=== PATIENT | female | born 1970 | race Caucasian/White ===

== ENCOUNTER 2017-01-08 07:18 | Outpatient (CLI) | payer OTHER ==
--- NOTE | 2017-01-08 09:27 | CT Report ---
CT OF CERVICAL SPINE WITHOUT CONTRAST: 01/08/2017 CLINICAL INDICATION: Neck pain after a horse accident. TECHNIQUE: Axial CT images of the cervical spine were obtained without contrast, following which sagi ttal and coronal reconstructions were performed. No previous CT is available for comparison. FINDINGS: The cervical vertebral bodies demonstrate normal height and alignment. 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 The other disk spaces are unremarkable. There is no evidence of fracture or subl uxation. The prevertebral soft tissues are unremarkable. 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 NO EVIDENCE OF FRACTURE. In accordance with CT protocol optimization, one or more of the following dose reduction techniques w ere utilized for this exam: automated exposure control, adjustment of mA and/or KV based on patient size, or use of iterative reconstructive technique. JOB #: [id number] EXT JOB #:[id number]
== END 2017-01-08 07:19 | disposition home or self-care (01) ==
LOC: DI 07:18
PROVIDERS: ATTEND Internal Medicine
DX: M54.2 Cervicalgia (principal); Q76.49 Other congenital malformations of spine, not associated with scoliosis
CPT/HCPCS: 72125

== ENCOUNTER 2018-01-17 08:44 | Outpatient (CLI) | payer OTHER ==
[2018-01-17 08:57] LABS: BASOPHILS # (AUTO) 0.1 10^3/uL (0.0-0.1); EOSINOPHILS # (AUTO) 0.2 10^3/uL (0.0-0.7); EOSINOPHILS % (AUTO) 5.3 %; HGB - HEMOGLOBIN 12.2 g/dL (12.0-16.0); LYMPHOCYTES # (AUTO) 1.3 10^3/uL (1.5-3.5); LYMPHOCYTES % (AUTO) 35.2 %; MEAN CORPUSCULAR HEMOGLOBIN 30.8 pg (27.0-31.0); MEAN CORPUSCULAR HGB CONC 33.8 g/dL (32.0-36.0); MEAN CORPUSCULAR VOLUME 91.2 fL (81.0-99.0); MONOCYTES # (AUTO) 0.3 10^3/uL (0.0-1.0); MONOCYTES % (AUTO) 8.8 %; NEUTROPHILS # (AUTO) 1.7 10^3/uL (1.5-6.6); NEUTROPHILS % (AUTO) 47.7 %; PLT - PLATELET COUNT 252 10^3/uL (130-450); RED BLOOD COUNT 3.96 10^6/uL (4.20-5.40); RED CELL DISTRIBUTION WIDTH 12.4 % (12.0-15.0); WHITE BLOOD COUNT 3.7 x10^3/uL (4.8-10.8)
[2018-01-17 10:00] LABS: ALBUMIN/GLOBULIN RATIO 1.4 (1.0-2.2); ALKALINE PHOSPHATASE 37 IU/L (42-121); ALT ALANINE AMINOTRANSFERASE 51 IU/L (10-60); AST ASPARTATE AMINOTRANSFERASE 33 IU/L (10-42); BILIRUBIN,TOTAL 0.7 mg/dL (0.2-1.0); BUN - BLOOD UREA NITROGEN 14 mg/dL (6-20); CALCIUM 9.1 mg/dL (8.5-10.3); CARBON DIOXIDE - CO2 27 mmol/L (21-32); CHLORIDE 103 mmol/L (101-111); CHOL/HDL RATIO 2.9 (<4.4); CHOLESTEROL 237 mg/dL; CREATININE 0.9 mg/dL (0.4-1.0); GFR - MDRD 67 (>89); GLUCOSE 99 mg/dL (70-100); HDL CHOLESTEROL 82 mg/dL; LDL CHOLESTEROL,CALCULATED 141 mg/dL; LDL/HDL RATIO 1.7 (<4.4); SODIUM 139 mmol/L (135-145); TOTAL PROTEIN 6.9 g/dL (6.7-8.2); VLDL CHOLESTEROL 14 mg/dL
[2018-01-17 10:12] LABS: THYROID STIMULATING HORMONE 2.68 uIU/mL (0.34-5.60)
[2018-01-17 10:41] LABS: FOLLICLE STIMULATING HORMONE 46.2 mIU/mL
== END 2018-01-17 08:45 | disposition home or self-care (01) ==
LOC: LAB 08:44
PROVIDERS: ATTEND Internal Medicine
DX: Z00.00 Encounter for general adult medical examination without abnormal findings (principal); K58.9 Irritable bowel syndrome, unspecified; K21.9 Gastro-esophageal reflux disease without esophagitis; R42 Dizziness and giddiness; R20.0 Anesthesia of skin; G35 Multiple sclerosis; J30.2 Other seasonal allergic rhinitis; Z79.899 Other long term (current) drug therapy; Z13.6 Encounter for screening for cardiovascular disorders
CPT/HCPCS: 36415; 80053; 80061; 82607; 83001; 83721; 84443; 85025

== ENCOUNTER 2018-02-14 14:31 | Outpatient (CLI) | payer OTHER ==
[2018-02-14 15:13] LABS: MEAN RETIC VALUE 111.9; RED BLOOD COUNT 4.11 10^6/uL (4.20-5.40)
[2018-02-14 15:50] LABS: FERRITIN 30.6 ng/mL (11.0-306.8)
[2018-02-14 15:55] LABS: FOLATE 8.03 ng/mL (5.90 - >24.8)
[2018-02-14 15:58] LABS: % IRON SATURATION 13 % (20-50); IRON 54 ug/dL (28-170); TOTAL IRON BINDING CAPACITY 402 ug/dL (250-450); TRANSFERRIN 287 mg/dL (192-382)
== END 2018-02-14 14:32 | disposition home or self-care (01) ==
LOC: LAB 14:31
PROVIDERS: ATTEND Internal Medicine
DX: D64.9 Anemia, unspecified (principal); R53.83 Other fatigue
CPT/HCPCS: 36415; 82728; 82746; 83540; 84466; 85044

== ENCOUNTER 2018-02-14 15:16 | Outpatient (CLI) | payer OTHER ==
--- NOTE | 2018-02-14 16:30 | XRAY Report ---
Reason: RIGHT HIP JOINT PAIN Procedure Date: 02/14/2018 Accession Number: [id number] / [id number] Procedure: XR - Femur 2V RT CPT Code: FULL RESULT: EXAM: RIGHT FEMUR RADIOGRAPHY EXAM DATE: 02/14/2018 03:57 PM. CLINICAL HISTORY: Right hip joint pain. COMPARISON: None. TECHNIQUE: 2 views. FINDINGS: Bones: Normal. No fracture or bone lesion. Joints: The visualized hip and knee joints are normal. No effusions. Soft Tissues: Normal. No soft tissue swelling. IMPRESSION: Normal femur radiography. RADIA
--- NOTE | 2018-02-14 16:30 | XRAY Report ---
Reason: PAIN OF RIGHT HIP JOINT Procedure Date: 02/14/2018 Accession Number: [id number] / [id number] Procedure: XR - Hip w/Pelvis 2-3V RT CPT Code: FULL RESULT: EXAM: RIGHT HIP AND PELVIS RADIOGRAPHY EXAM DATE: 02/14/2018 03:57 PM. HISTORY: Pain of right hip joint. COMPARISONS: None. TECHNIQUE: 1 view of the pelvis and 1 view of the hip. FINDINGS: Bones: No fracture or bone lesion. Joints: The bilateral hip, pubis symphysis, and sacroiliac joints are preserved. Soft Tissues: No soft tissue gas is identified. No soft tissue swelling. IMPRESSION: No significant degenerative changes. No fracture or dislocation. RADIA
== END 2018-02-14 15:17 | disposition home or self-care (01) ==
LOC: DI 15:16
PROVIDERS: ATTEND Acupuncturist
DX: M25.551 Pain in right hip (principal); D64.9 Anemia, unspecified; R53.83 Other fatigue
CPT/HCPCS: 36415; 82728; 82746; 83540; 84466; 85044

== ENCOUNTER 2018-02-22 08:00 | Outpatient (CLI) | payer OTHER | END 2018-02-22 08:01 | disposition home or self-care (01) | LOC: LAB.R 08:00 | PROVIDERS: ATTEND Internal Medicine | DX: D64.9 Anemia, unspecified (principal); R53.83 Other fatigue | CPT/HCPCS: 82274 ==

== ENCOUNTER 2018-09-19 23:17 | Outpatient (CLI) | payer OTHER ==
--- NOTE | 2018-09-20 00:33 | Ultrasound Report ---
Reason: LOWER EXTREMITY EDEMA Procedure Date: 09/19/2018 Accession Number: [id number] / [id number] Procedure: US - Duplex Ext Veins Right CPT Code: FULL RESULT: EXAM: RIGHT LOWER EXTREMITY VENOUS ULTRASOUND EXAM DATE: 09/19/2018 11:29 PM. CLINICAL HISTORY: Lower extremity edema. COMPARISON: None. TECHNIQUE: Real-time sonographic vascular imaging was performed by the supervisor border department through the lower extremity utilizing both color-flow and Doppler spectral analysis. Multiple personal financial representative static images were saved for review. FINDINGS: Common Femoral Vein (CFV): Normal. CFV-GSV Junction: Normal. Profunda Femoral Vein (PFV): Normal. Femoral Vein (FV) Prox: Normal. Femoral Vein (FV) Mid: Normal. Femoral Vein (FV) Dist: Normal. Popliteal Vein: Normal. Posterior Tibial Veins: Normal. Peroneal Veins: Normal. Contralateral Left CFV: Normal. Other: None. IMPRESSION: No evidence for deep venous thrombosis. RADIA The call report notification system was initiated by Dr. Krunal Issa at 12:32 AM on 09/20/2018.
== END 2018-09-19 23:18 | disposition home or self-care (01) ==
LOC: DI 23:17
PROVIDERS: ATTEND Internal Medicine
DX: R60.0 Localized edema (principal)

== ENCOUNTER 2018-10-24 13:56 | Outpatient (CLI) | payer OTHER ==
--- NOTE | 2018-10-24 16:25 | Ultrasound Report ---
Reason: R LEG PAIN EDEMA, DECREASED PULSI Procedure Date: 10/24/2018 Accession Number: [id number] / [id number] Procedure: US - Duplex Lwr Ext Arterial Bilat CPT Code: FULL RESULT: EXAM: Bilateral Lower Extremity Arterial Doppler Ultrasound EXAM DATE: 10/24/2018 03:10 PM. CLINICAL HISTORY: Right leg edema. Possible arterial obstructive disease. COMPARISON: None. TECHNIQUE: Real-time sonographic vascular imaging was performed by the hook loader, utilizing color-flow, Doppler flow, and spectral analysis. Multiple outside sales representative insurance static images were saved for review. FINDINGS: No significant plaque. Right CK 1.0 left CK 1.1. Right Leg: [place] TESTER: PSV 200 cm/sec. Triphasic waveform. PSFA: PSV 119 cm/sec. Triphasic waveform. MSFA: PSV 163 cm/sec. Triphasic waveform. DSFA: PSV 150 cm/sec. Triphasic waveform. PFA: PSV 90 cm/sec. Triphasic waveform. POP: PSV 71 cm/sec. Biphasic waveform. BING: PSV 32 cm/sec. Biphasic waveform. MEDIEVAL ENGLISH LITERATURE PROFESSOR: PSV 46 cm/sec. Biphasic waveform. PER: PSV 17 cm/sec. Monophasic waveform. DPA: PSV 17 cm/sec. Biphasic waveform. Left Leg: BABCOCK TESTER: PSV 164 cm/sec. Triphasic waveform. PSFA: PSV 128 cm/sec. Triphasic waveform. MSFA: PSV 152 cm/sec. Triphasic waveform. DSFA: PSV 121 cm/sec. Triphasic waveform. PFA: PSV 124 cm/sec. Triphasic Waveform. POP: PSV 54 cm/sec. Triphasic waveform. BING: PSV 57 cm/sec. Biphasic waveform. MEDIEVAL ENGLISH LITERATURE PROFESSOR: PSV 58 cm/sec. Biphasic waveform. PER: PSV 42 cm/sec. Biphasic waveform. DPA: PSV 43 cm/sec. Biphasic waveform. Systolic Pressures Brachial: Right 129/70. Left 121/55. Ankle: Right 136/70. Left 142/67. Ankle/Arm Index: Right 1.0. Left 1.1. IMPRESSION: No hemodynamically significant stenosis. RADIA
== END 2018-10-24 13:57 | disposition home or self-care (01) ==
LOC: DI 13:56
PROVIDERS: ATTEND Internal Medicine
DX: M79.604 Pain in right leg (principal); R60.0 Localized edema
CPT/HCPCS: 93922; 93925

== ENCOUNTER 2018-11-09 15:04 | Emergency (ER) | payer OTHER ==
[2018-11-09 15:31] LABS: BILIRUBIN,URINE NEGATIVE (NEGATIVE); GLUCOSE, URINE (UA) NEGATIVE (NEGATIVE); KETONES,URINE (UA) NEGATIVE (NEGATIVE); LEUKOCYTE ESTERASE, URINE SMALL (NEGATIVE); NITRITE,URINE NEGATIVE (NEGATIVE); OCCULT BLOOD,URINE NEGATIVE (NEGATIVE); PH,URINE 5.5 PH (5.0-7.5); PROTEIN,URINE NEGATIVE (NEGATIVE); UROBILINOGEN,URINE 0.2 (NORMAL) E.U./dL (NORMAL)
[2018-11-09 15:40] LABS: CLARITY,URINE HAZY (CLEAR)
--- NOTE | 2018-11-09 15:44 | ED Physician Documentation ---
PD HPI CHEST PAIN - Stated complaint Stated Complaint: CHEST PX - Chief complaint Chief Complaint: Cardiac - History obtained from History obtained from: Patient - History of Present Illness Timing - onset: How many weeks ago (1) Timing - onset during: Light activity Timing - duration: Weeks (1) Timing - details: Gradual onset, Still present Quality: Pressure Location: Substernal Radiation: Neck Improved by: Rest Worsened by: Exertion Associated symptoms: Shortness of air, Feeling faint / dizzy. No: Diaphoresis, Nausea, Vomiting, General Weakness, Palpitations, Cough Similar symptoms before: Diagnosis (negative angio one year ago with tortuous coronary arteries.) Recently seen: Clinic - Additional information Additional information: 48-year-old female with a history of chronic remitting and relapsing MS has developed substernal chest pressure over the past week. She states the pressure is persistent worsens with exertion and is associated with some shortness of breath. She denies cough or wheezing and she denies injury. She has recently been into see her primary care doctor about some discoloration on her foot with some swelling she did have a DVT study done and she has been into see the neurologist about this as well. The thought is there is some nerve damage to the foot. Review of Systems Constitutional: denies: Fever, Chills, Myalgias Eyes: denies: Decreased vision Ears: denies: Ear pain Nose: reports: Congestion. denies: Rhinorrhea / runny nose Throat: denies: Sore throat Cardiac: reports: Chest pain / pressure. denies: Palpitations, Pedal edema, Calf pain Respiratory: reports: Dyspnea. denies: Cough, Wheezing GI: denies: Abdominal Pain, Abdominal Swelling, Nausea, Vomiting : denies: Dysuria PD PAST MEDICAL HISTORY - Past Medical History Past Medical History: Yes Neuro: Multiple sclerosis - Past Surgical History Past Surgical History: No - Present Medications Home Medications: Ambulatory Orders Medication Instructions Recorded Confirmed Sulfamethoxazole/Trimethoprim 1 each PO BID #14 tablet 11/09/18 [Sulfamethoxazole-Tmp Ds Tablet] - Allergies Allergies/Adverse Reactions: Allergies Allergy/AdvReac Type Severity Reaction Status Date / Time No Known Drug Allergies Allergy Verified 11/09/18 15:07 - Social History Does the pt smoke?: No Smoking Status: Never smoker PD ED PE NORMAL - Vitals Vital signs reviewed: Yes (hypertensive ) - General General: Alert and oriented X 3, No acute distress, Well developed/nourished - HEENT HEENT: Atraumatic, PERRL, EOMI, Ears normal, Moist mucous membranes, Pharynx benign - Neck Neck: Supple, no meningeal sign, No bony TTP - Cardiac Cardiac: No murmur, Other (tachy to 110) - Respiratory Respiratory: No respiratory distress, Clear bilaterally - Abdomen Abdomen: Soft, Non tender - Back Back: No CVA TTP, No spinal TTP - Derm Derm: Normal color, Warm and dry, No rash - Extremities Extremities: No deformity, No edema - Neuro Neuro: Alert and oriented X 3, balance staff inspector 2-12 intact, No motor deficit, No sensory deficit, Normal speech Eye Opening: Spontaneous Motor: Obeys Commands Verbal: Oriented GCS Score: 15 - Psych Psych: Normal mood, Normal affect Results - Vitals Vitals: Vital Signs - 24 hr 11/09/18 11/09/18 15:07 16:53 Temperature 36.5 C Heart Rate 100 76 Respiratory 18 19 Rate Blood Pressure 155/77 H 147/86 H O2 Saturation 100 99 Oxygen O2 Source Room air - EKG (time done) 1510 Rate: Rate (enter#) (84) Rhythm: NSR [place]: Posterior hemiblock Ischemia: Non specific changes Compare to prior EKG: Old EKG unavailable Computer interpretation: Agree with computer - Labs Labs: Laboratory Tests 11/09/18 11/09/18 11/09/18 15:20 15:50 15:50 WBC 5.2 RBC 4.28 Hgb 13.4 Hct 39.9 MCV 93.2 MCH 31.3 H MCHC 33.6 RDW 11.7 L Plt Count 299 MPV 8.5 Neut # (Auto) 4.7 Lymph # (Auto) 0.3 L [place] # (Auto) 0.1 Eos # (Auto) 0.0 Baso # (Auto) 0.0 Absolute Nucleated RBC 0.00 Nucleated RBC % 0.0 D-Dimer Sodium 140 Potassium 3.9 Chloride 104 Carbon Dioxide 25 Anion Gap 11.0 BUN 12 Creatinine 0.8 Estimated GFR (MDRD) 77 L Glucose 114 H Calcium 10.3 Total Bilirubin 1.0 AST 24 ALT 22 Alkaline Phosphatase 54 Troponin I B-Natriuretic Peptide Total Protein 8.1 Albumin 5.0 Globulin 3.1 Albumin/Globulin Ratio 1.6 Lipase 34 Urine Color LT. YELLOW Urine Clarity HAZY Urine pH 5.5 Ur Specific [place] <=1.005 Urine Protein NEGATIVE Urine Glucose (UA) NEGATIVE Urine Ketones NEGATIVE Urine Occult Blood NEGATIVE Urine Nitrite NEGATIVE Urine Bilirubin NEGATIVE Urine Urobilinogen 0.2 (NORMAL) Ur Leukocyte Esterase SMALL H Urine RBC 0-5 Urine WBC 6-10 H Ur Squamous Epith Cells FEW Squamous Urine Bacteria Rare Ur Microscopic Review INDICATED Urine Culture Comments INDICATED 11/09/18 11/09/18 11/09/18 15:50 15:50 15:50 WBC RBC Hgb Hct MCV MCH MCHC RDW Plt Count MPV Neut # (Auto) Lymph # (Auto) [place] # (Auto) Eos # (Auto) Baso # (Auto) Absolute Nucleated RBC Nucleated RBC % D-Dimer < 200.0 L Sodium Potassium Chloride Carbon Dioxide Anion Gap BUN Creatinine Estimated GFR (MDRD) Glucose Calcium Total Bilirubin AST ALT Alkaline Phosphatase Troponin I < 0.04 B-Natriuretic Peptide 40 Total Protein Albumin Globulin Albumin/Globulin Ratio Lipase Urine Color Urine Clarity Urine pH Ur Specific [place] Urine Protein Urine Glucose (UA) Urine Ketones Urine Occult Blood Urine Nitrite Urine Bilirubin Urine Urobilinogen Ur Leukocyte Esterase Urine RBC Urine WBC Ur Squamous Epith Cells Urine Bacteria Ur Microscopic Review Urine Culture Comments - Rads (name of study) chest 2 view Radiology: Prelim report reviewed (Impression: Hyperinflated lungs. No consolidation, airspace disease, pleural effusion or pneumothorax. Probable bilateral nipple shadows. Pulmonary nodule is not excluded. A repeat chest x- ray with nipple markers could be obtained to rule out pulmonary nodule.), EMP read indepedently, See rad report Procedures - Bedside sono Bedside sono by EMP: With use of bedside ultrasound the heart is imaged there is no evidence of pericardial effusion there does appear to be good symmetric contraction. - IVC sono (time) 1530 Bedside IVC sono: IVC measures (cm) (1.55), Euvolemia PD MEDICAL DECISION MAKING - ED course Complexity details: reviewed results, re-evaluated patient, considered differential, d/w patient ED course: 40-year-old female with a history of chronic relapsing and remitting MS has developed chest pressure worse with exertion and some dyspnea associated with this. There is no evidence today of lung disease electrocardiogram, troponin, BNP and d-dimer are all negative the patient was checked for DVT 1 week ago. She has persistent chest pressure and increased spasticity and on evaluation today we have found urinary tract infection. We did not discover any specific reason for the chest pressure which persists at a low level. She has had prior negative angiogram one year ago. We will treat the bladder infection. Departure - Departure Disposition: Home, Self Care Clinical Impression: Atypical chest pain Urinary tract infection Qualifiers: Urinary tract infection type: acute cystitis Hematuria presence: without hematuria Qualified Code(s): N30.00 - Acute cystitis without hematuria Condition: Stable Instructions: ED Chest Pain Atypical Unkn Cause, ED UTI Cystitis Female Follow-Up: Mary Tolbert MD [Primary Care Provider] - Prescriptions: Sulfamethoxazole/Trimethoprim [Sulfamethoxazole-Tmp Ds Tablet] 1 each PO BID #14 tablet
[2018-11-09 15:50] LABS: BACTERIA,URINE Rare /HPF (None Seen); RBC,URINE 0-5 /HPF (0-5); SQUAMOUS EPITHELIAL CELL,UR FEW Squamous (<= Few)
[2018-11-09 15:59] LABS: BASOPHILS % (AUTO) 0.6 %; EOSINOPHILS % (AUTO) 0.6 %; HGB - HEMOGLOBIN 13.4 g/dL (12.0-16.0); LYMPHOCYTES # (AUTO) 0.3 10^3/uL (1.5-3.5); LYMPHOCYTES % (AUTO) 6.4 %; MEAN CORPUSCULAR HEMOGLOBIN 31.3 pg (27.0-31.0); MEAN CORPUSCULAR HGB CONC 33.6 g/dL (32.0-36.0); MEAN CORPUSCULAR VOLUME 93.2 fL (81.0-99.0); MEAN PLATELET VOLUME 8.5 fL (7.9-10.8); MONOCYTES # (AUTO) 0.1 10^3/uL (0.0-1.0); MONOCYTES % (AUTO) 1.5 %; NEUTROPHILS # (AUTO) 4.7 10^3/uL (1.5-6.6); NEUTROPHILS % (AUTO) 90.5 %; PLT - PLATELET COUNT 299 10^3/uL (130-450); RED BLOOD COUNT 4.28 10^6/uL (4.20-5.40); RED CELL DISTRIBUTION WIDTH 11.7 % (12.0-15.0); WHITE BLOOD COUNT 5.2 x10^3/uL (4.8-10.8)
[2018-11-09 16:13] LABS: ALBUMIN/GLOBULIN RATIO 1.6 (1.0-2.2); CALCIUM 10.3 mg/dL (8.5-10.3); CREATININE 0.8 mg/dL (0.4-1.0); TOTAL PROTEIN 8.1 g/dL (6.7-8.2)
--- NOTE | 2018-11-09 16:40 | XRAY Report ---
Reason: chest pressure Procedure Date: 11/09/2018 Accession Number: [id number] / [id number] Procedure: XR - Chest 2 View X-Ray CPT Code: 92602 FULL RESULT: EXAM: CHEST RADIOGRAPHY EXAM DATE: 11/09/2018 04:12 PM. CLINICAL HISTORY: Chest pressure. 1 week gradual onset chest pressure, still present substernal chest pain and pressure radiating into neck. Shortness of breath, feeling faint and dizzy. COMPARISON: None. TECHNIQUE: 2 views. FINDINGS: Lungs/Pleura: Hyperinflated lungs. No consolidation, airspace disease, pleural effusion or pneumothorax. Probable bilateral nipple shadows. Pulmonary nodule is not excluded. A repeat chest x-ray with nipple markers could be obtained to rule out pulmonary nodule. Mediastinum: Heart and mediastinal contours are unremarkable. IMPRESSION: Hyperinflated lungs. No consolidation, airspace disease, pleural effusion or pneumothorax. Probable bilateral nipple shadows. Pulmonary nodule is not excluded. A repeat chest x-ray with nipple markers could be obtained to rule out pulmonary nodule. RADIA
[2018-11-09 16:54] VITALS: BP 147/86
== END 2018-11-09 17:11 | disposition home or self-care (01) ==
LOC: ED 15:04
DX: R07.89 Other chest pain (principal); R06.02 Shortness of breath; N30.00 Acute cystitis without hematuria; I44.5 Left posterior fascicular block; G35 Multiple sclerosis
CPT/HCPCS: 36415; 71046; 80053; 81001; 81003; 83690; 83880; 84484; 85025; 85379; 87086; 93005; 99283; 99284

== ENCOUNTER 2019-01-09 10:22 | Outpatient (CLI) | payer OTHER ==
--- NOTE | 2019-01-09 14:11 | XRAY Report ---
Reason: PAIN CONTRATURE R ANKLE Procedure Date: 01/09/2019 Accession Number: [id number] / [id number] Procedure: XR - Ankle 3 View RT CPT Code: FULL RESULT: EXAM: RIGHT ANKLE RADIOGRAPHY, 3 VIEWS EXAM DATE: 01/09/2019 10:37 AM. CLINICAL HISTORY: 48-year-old female with right ankle pain and contracture. History of prior fracture. COMPARISON: Left foot radiographic study of 02/18/2015. No right foot or ankle radiographs available for comparison. TECHNIQUE: Frontal, lateral and oblique views. FINDINGS: Bones: Minimal plantar heel spur. Otherwise normal. No fractures or bone lesions. Joints: Normal. No effusion. No subluxations. The ankle mortise is normally aligned. Soft Tissues: Normal. No soft tissue swelling. IMPRESSION: Minimal plantar heel spur. Otherwise unremarkable right ankle. No posttraumatic abnormality, recent or old or other demonstrated cause for the patient's symptoms noted. RADIA
== END 2019-01-09 10:23 | disposition home or self-care (01) ==
LOC: DI 10:22
PROVIDERS: ATTEND Podiatrist
DX: M25.571 Pain in right ankle and joints of right foot (principal)

== ENCOUNTER 2019-01-23 11:44 | Outpatient (CLI) | payer OTHER ==
--- NOTE | 2019-01-24 12:04 | MRI Report ---
Reason: PAIN AND JOINT CONTRACTURE R ANKLE Procedure Date: 01/23/2019 Accession Number: [id number] / [id number] Procedure: MRI - Ankle RT W/O CPT Code: FULL RESULT: EXAM: RIGHT ANKLE/HINDFOOT MRI WITHOUT CONTRAST EXAM DATE: 01/23/2019 12:48 PM. CLINICAL HISTORY: Pain and joint contracture right ankle. COMPARISON: ANKLE 3 VIEW RT 01/09/2019 10:30 AM. TECHNIQUE: Multiplanar, multisequence T1-weighted and fluid-sensitive sequences of the ankle/hindfoot without contrast. Other: None. FINDINGS: Bones and Articular Surfaces: No significant ankle joint effusion. No osteochondral lesions. Small amount of cartilage thinning and subchondral edema at the upper margin of the calcaneocuboid joint. Tiny focus of cartilage fissuring and subchondral edema at the anterolateral aspect of the tibial plafond. No fracture. No destructive bone lesion. Musculotendinous Structures: The Achilles tendon and plantar fascia appear intact. Visualized anterior, posterior and posterolateral ankle tendons appear intact without significant tendinosis or tenosynovitis. No significant muscle atrophy or fatty replacement. Ligaments: The anterior and posterior talofibular, calcaneofibular and deltoid ligaments appear intact. Normal signal within the tarsal sinus. Anterior and posterior distal tibiofibular ligaments appear intact. Subcutaneous soft-tissue lipoma plantar to the abductor hallucis and medial to the flexor digitorum brevis measures 2.4 x 1.6 x 4.0 cm. IMPRESSION: 1. Mild calcaneocuboid osteoarthritis. 2. Minimal degenerative cartilage change at the tibial plafond. 3. Subcutaneous lipoma at the lateral plantar hindfoot. RADIA
== END 2019-01-23 11:45 | disposition home or self-care (01) ==
LOC: DI 11:44
PROVIDERS: ATTEND Podiatrist
DX: M19.071 Primary osteoarthritis, right ankle and foot (principal); D17.79 Benign lipomatous neoplasm of other sites

== ENCOUNTER 2019-01-30 07:51 | Outpatient (CLI) | payer OTHER ==
--- NOTE | 2019-01-30 13:50 | Mammography Report ---
Reason: SCREEING MAMMO Procedure Date: 01/30/2019 Accession Number: [id number] / [id number] Procedure: MAXIMO - Screening Mammo w/Tono CPT Code: FULL RESULT: EXAM: Screening Mammo w/Tono DATE: 01/30/2019 8:23 AM CLINICAL HISTORY: Routine screening TECHNIQUE: (B) - Bilateral CC and MLO views were obtained. COMPARISON: 08/19/2015, 08/06/2014, 08/07/2013 and 06/13/2012 PARENCHYMAL PATTERN: (VD) - The breasts demonstrate extremely dense parenchyma bilaterally, limiting the sensitivity of mammography. FINDINGS: No significant interval change. There are no suspicious masses, calcifications, or areas of distortion. IMPRESSION: Negative examination. BI-RADS category 1. RECOMMENDATION: (ANNUAL) - Recommend routine annual screening mammography. BI-RADS CATEGORY: (1) - Negative. STANDARD QUALIFYING STATEMENTS: 1. This examination was not reviewed with the aid of Computer-Aided Detection (CAD). 2. A negative or benign imaging report should not preclude biopsy if clinically suspicious findings are present. 3. Dense breasts may obscure an underlying neoplasm. 4. This examination was reviewed with the aid of 3D breast imaging (tomosynthesis).
== END 2019-01-30 07:52 | disposition home or self-care (01) ==
LOC: DI 07:51
PROVIDERS: ATTEND Internal Medicine
DX: Z12.31 Encounter for screening mammogram for malignant neoplasm of breast (principal)
CPT/HCPCS: 77063; 77067

== ENCOUNTER 2019-01-30 08:24 | Outpatient (CLI) | payer OTHER | END 2019-01-30 08:25 | disposition home or self-care (01) | LOC: LAB 08:24 | PROVIDERS: ATTEND Internal Medicine | DX: R73.01 Impaired fasting glucose (principal) | CPT/HCPCS: 36415; 82951 ==

== ENCOUNTER 2020-02-19 13:27 | Outpatient (CLI) | payer OTHER ==
[2020-02-19 13:53] LABS: BASOPHILS # (AUTO) 0.1 10^3/uL (0.0-0.1); BASOPHILS % (AUTO) 1.4 %; EOSINOPHILS # (AUTO) 0.1 10^3/uL (0.0-0.7); EOSINOPHILS % (AUTO) 1.1 %; HGB - HEMOGLOBIN 13.8 g/dL (12.0-16.0); LYMPHOCYTES # (AUTO) 2.1 10^3/uL (1.5-3.5); LYMPHOCYTES % (AUTO) 30.4 %; MEAN CORPUSCULAR HGB CONC 32.5 g/dL (32.0-36.0); MEAN CORPUSCULAR VOLUME 95.5 fL (81.0-99.0); MEAN PLATELET VOLUME 8.4 fL (7.9-10.8); MONOCYTES # (AUTO) 0.5 10^3/uL (0.0-1.0); MONOCYTES % (AUTO) 7.1 %; NEUTROPHILS # (AUTO) 4.2 10^3/uL (1.5-6.6); NEUTROPHILS % (AUTO) 59.4 %; PLT - PLATELET COUNT 359 10^3/uL (130-450); RED BLOOD COUNT 4.45 10^6/uL (4.20-5.40); RED CELL DISTRIBUTION WIDTH 11.3 % (12.0-15.0)
[2020-02-19 14:28] LABS: ALBUMIN 4.7 g/dL (3.2-5.5); ALBUMIN/GLOBULIN RATIO 1.7 (1.0-2.2); ALKALINE PHOSPHATASE 47 IU/L (42-121); ALT ALANINE AMINOTRANSFERASE 13 IU/L (10-60); AST ASPARTATE AMINOTRANSFERASE 17 IU/L (10-42); BILIRUBIN,TOTAL 0.7 mg/dL (0.2-1.0); BUN - BLOOD UREA NITROGEN 20 mg/dL (6-20); CALCIUM 9.7 mg/dL (8.5-10.3); CARBON DIOXIDE - CO2 30 mmol/L (21-32); CHLORIDE 101 mmol/L (101-111); CHOL/HDL RATIO 2.6 (<4.4); CHOLESTEROL 250 mg/dL; CREATININE 0.6 mg/dL (0.4-1.0); GLUCOSE 98 mg/dL (70-100); HDL CHOLESTEROL 97 mg/dL; LDL CHOLESTEROL,CALCULATED 140 mg/dL; LDL/HDL RATIO 1.4 (<4.4); SODIUM 139 mmol/L (135-145); TOTAL PROTEIN 7.4 g/dL (6.7-8.2); VLDL CHOLESTEROL 13 mg/dL
[2020-02-19 19:15] LABS: HEMOGLOBIN A1c% 5.2 % (4.27-6.07)
== END 2020-02-19 13:28 | disposition home or self-care (01) ==
LOC: LAB 13:27
PROVIDERS: ATTEND Internal Medicine
DX: M19.90 Unspecified osteoarthritis, unspecified site (principal); Z13.6 Encounter for screening for cardiovascular disorders; R10.9 Unspecified abdominal pain; G35 Multiple sclerosis; R53.83 Other fatigue; R06.00 Dyspnea, unspecified
CPT/HCPCS: 36415; 80053; 80061; 83036; 83721; 84443; 85025

== ENCOUNTER 2020-03-25 12:28 | Outpatient (CLI) | payer OTHER ==
[2020-03-25 12:50] LABS: BILIRUBIN,URINE NEGATIVE (NEGATIVE); GLUCOSE, URINE (UA) NEGATIVE (NEGATIVE); KETONES,URINE (UA) NEGATIVE (NEGATIVE); LEUKOCYTE ESTERASE, URINE NEGATIVE (NEGATIVE); NITRITE,URINE NEGATIVE (NEGATIVE); OCCULT BLOOD,URINE NEGATIVE (NEGATIVE); PH,URINE 6.5 PH (5.0-7.5); PROTEIN,URINE NEGATIVE (NEGATIVE); UROBILINOGEN,URINE 0.2 (NORMAL) E.U./dL (NORMAL)
[2020-03-25 12:51] LABS: CLARITY,URINE CLEAR (CLEAR)
[2020-03-25 12:53] LABS: BACTERIA,URINE Rare /HPF (None Seen); RBC,URINE None Seen /HPF (0-5); SQUAMOUS EPITHELIAL CELL,UR FEW Squamous (<= Few)
== END 2020-03-25 12:29 | disposition home or self-care (01) ==
LOC: LAB 12:28
PROVIDERS: ATTEND Physical Medicine & Rehabilitation
DX: R11.0 Nausea (principal)
CPT/HCPCS: 81001; 87086

== ENCOUNTER 2020-04-15 11:16 | Outpatient (CLI) | payer OTHER ==
--- NOTE | 2020-04-19 09:47 | Mammography Report ---
BILATERAL DIGITAL SCREENING MAMMOGRAM 3D/2D: 04/15/2020 CLINICAL: Routine screening. Comparison is made to exams dated: 01/30/2019 mammogram, 08/19/2015 mammogram, 08/06/2014 mammogram, 07/13 mammogram, 06/13/2012 mammogram, and 05/20/2011 mammogram - [facility]. The ti ssue of both breasts is heterogeneously dense. This may lower the sensitivity of mammography. No significant masses, calcifications, or other findings are seen in either breast. There has been no significant interval change. IMPRESSION: NEGATIVE There is no mammographic evidence of malignancy. A 1 year screening mammogram is recommended. This exam was interpreted at Station ID: [id number]. NOTE: For mammograms, a report in lay terms will be sent to the patient. Approximately 15% of breast malignancies will not be visualized mammographically. In the management of a palpable breast mass, a negative mammogram must not discourage biopsy of a clinically suspicious lesion. Electronically Signed By: Buddy Hall acr/penrad:04/18/2020 19:22:59 ACR BI-RADS Category 1: Negative 3341F PARENCHYMAL PATTERN: (D) - The breast(s) demonstrate(s) heterogeneously dense fibroglandular jarad [place]. BI-RADS CATEGORY: (1) - 1 RECOMMENDATION: (ANNUAL) - Recommend routine annual screening mammography. [id number] 1 year screening LATERALITY: (B)
== END 2020-04-15 11:17 | disposition home or self-care (01) ==
LOC: DI.N 11:16
PROVIDERS: ATTEND Internal Medicine
DX: Z12.31 Encounter for screening mammogram for malignant neoplasm of breast (principal)

== ENCOUNTER 2020-09-09 14:31 | Outpatient (CLI) | payer OTHER ==
--- NOTE | 2020-09-09 18:20 | XRAY Report ---
PROCEDURE: Hip w/Pelvis 2-3V RT INDICATIONS: RIGHT HIP PAIN TECHNIQUE: AP pelvis with lateral view(s) of the right hip(s). COMPARISON: Right hip and pelvis x-ray 02/14/2018 FINDINGS: Bones: No fractures or dislocations. Pelvic ring appears intact. No suspicious bony lesions. Soft tissues: The visualized bowel gas pattern is normal. No suspicious soft tissue calcifications. IMPRESSION: No visualized acute fracture or dislocation. However, occult injury cannot be excluded. Recommend short interval imaging follow-up in 7-10 days as clinically indicated for additional evalua tion. Reviewed by: Lucía Mckeon MD on 09/09/2020 5:19 PM AKHERMELINDA Approved by: Lucía Mckeon MD on 09/09/2020 5:19 PM AKHERMELINDA Station ID: [id number]
== END 2020-09-09 14:32 | disposition home or self-care (01) ==
LOC: DI 14:31
PROVIDERS: ATTEND Internal Medicine
DX: M25.551 Pain in right hip (principal)

== ENCOUNTER 2020-09-13 16:38 | Outpatient (CLI) | payer OTHER ==
[2020-09-13] MEDS ORDERED: IOPAMIDOL-300 100 ML VIAL ONE (16:44)
[2020-09-13] MEDS ORDERED: IOPAMIDOL-300 50 ML VIAL ONE (16:44)
[2020-09-13] MEDS ORDERED: IOPAMIDOL-300 100 ML VIAL IVP ONE (18:21)
[2020-09-13] MEDS ORDERED: IOPAMIDOL-300 50 ML VIAL PO ONE (18:35)
--- NOTE | 2020-09-13 18:42 | CT Report ---
PROCEDURE: Abdomen/Pelvis W INDICATIONS: 50-year-old female with six-month history of right lower quadrant pain CONTRAST: IV CONTRAST: Isovue 300 ml: 80 PO CONTRAST: Isovue 300 ml50 TECHNIQUE: After the administration of contrast, 5 mm thick sections acquired from the diaphragms to the symphys is. 5 mm thick coronal and sagittal reformats were acquired. For radiation dose reduction, the foll owing was used: automated exposure control, adjustment of mA and/or kV according to patient size. COMPARISON: None. FINDINGS: Image quality: Excellent. ABDOMEN: Lung bases: Lung bases are clear. Heart size is normal. Solid organs: Liver and spleen are normal in size and enhancement. Gallbladder unremarkable. Bilia ry system is non dilated. Pancreas enhances normally. No adrenal nodules. Kidneys demonstrate norm al size and enhancement, without hydronephrosis. Peritoneum and bowel: Bowel loops demonstrate normal wall thickness and caliber. No free fluid or a ir. Normal appendix identified. Nodes and vessels: No retroperitoneal or mesenteric adenopathy by size criteria. Aorta and inferior vena cava are normal in size. Miscellaneous: No ventral hernias. PELVIS: Genitourinary: Bladder wall thickness is normal. Miscellaneous: No inguinal hernias or adenopathy. Bones: No suspicious bony lesions. No vertebral body compression fractures. IMPRESSION: Unremarkable CT abdomen and pelvis. Normal appendix identified without evidence of appendicitis. Reviewed by: Dontae Melendez MD on 09/13/2020 5:41 PM FABIO Approved by: Dontae Melendez MD on 09/13/2020 5:41 PM FABIO Station ID: [id number]
== END 2020-09-13 16:39 | disposition home or self-care (01) ==
LOC: DI 16:38
PROVIDERS: ATTEND Internal Medicine
DX: R10.31 Right lower quadrant pain (principal)
CPT/HCPCS: 74177; Q9967

== ENCOUNTER 2020-10-27 21:32 | Emergency (ER) | payer OTHER ==
[2020-10-27] MEDS ORDERED: ACETAMINOPHEN 325 MG TABLET PO STA (21:55)
[2020-10-27] MEDS ORDERED: oxyCODONE 5 MG TABLET PO STA (22:40)
[2020-10-28] MEDS ORDERED: KETOROLAC 30 MG/ML VIAL IM STA (00:17)
--- NOTE | 2020-10-28 00:19 | ED Physician Documentation ---
History of Present Illness - Stated complaint Stated Complaint: GLF/BACK PX - Chief complaint Chief Complaint: Ext Problem - History obtained from History obtained from: Patient - Additonal information Additional information: 50-year-old woman with past medical history of chronic lower back pain presents with right hip and lower back pain after mechanical fall while walking today. She is ambulatory without difficulty but does state that she has some aching to her right hip that was sudden onset, is constant, worse with range of motion of the hip, radiating into the right lower back, without associated symptoms. Denies acute numbness or weakness, however she does have chronic issues relating to her neuromuscular disease. Review of Systems Constitutional: denies: Fever, Chills Skin: denies: Rash, Lesions, Abrasion (s) Musculoskeletal: reports: Back pain, Extremity pain, Joint pain Neurologic: denies: Focal weakness, Numbness PD PAST MEDICAL HISTORY - Past Medical History Past Medical History: Yes Neuro: Multiple sclerosis - Past Surgical History Past Surgical History: No - Present Medications Home Medications: Ambulatory Orders Medication Instructions Recorded Confirmed Sulfamethoxazole/Trimethoprim 1 each PO BID #14 tablet 11/09/18 [Sulfamethoxazole-Tmp Ds Tablet] Estradiol [Estrace] 0.5 mg PO DAILY 10/27/20 10/27/20 Meloxicam [Mobic] 7.5 mg PO DAILY 10/27/20 10/27/20 - Allergies Allergies/Adverse Reactions: Allergies Allergy/AdvReac Type Severity Reaction Status Date / Time No Known Drug Allergies Allergy Verified 10/27/20 21:48 - Social History Does the pt smoke?: No Smoking Status: Never smoker Does the pt drink ETOH?: No Does the pt have substance abuse?: No - Immunizations Immunizations are current?: Yes PD ED PE NORMAL - Vitals Vital signs reviewed: Yes - General General: Alert and oriented X 3, No acute distress, Well developed/nourished - HEENT HEENT: Atraumatic, PERRL, EOMI - Neck Neck: Supple, no meningeal sign, No bony TTP - Back Back: No spinal TTP, Other (Right lumbar area tender to palpation in a muscular distribution) - Derm Derm: Normal color, Warm and dry - Extremities Extremities: No deformity, Other (Right hip discomfort with range of motion. Full range of motion. 2+ bilateral DP and PT pulses, sensation, capillary refill. R leg notably colder than left, however patient states this is chronic) Results - Vitals Vitals: Vital Signs - 24 hr 10/27/20 10/27/20 10/28/20 21:46 22:55 00:30 Temperature 36.7 C 36.6 C 36.6 C Heart Rate 76 72 73 Respiratory 15 15 15 Rate Blood Pressure 134/52 H 135/60 H 132/61 H O2 Saturation 100 99 99 Oxygen O2 Source Room air PD MEDICAL DECISION MAKING - ED course ED course: 50-year-old woman with chronic back pain presents status post mechanical fall with back pain. It improved with oxycodone in the emergency department. Her x- rays are noncontributory. Return precautions given. She will follow up with her orthopedist for possible follow-up MRI. Departure - Departure Disposition: 01 Home, Self Care Clinical Impression: Chronic back pain Condition: Good Instructions: ED Chronic Pain Management Comments: You were seen in the emergency department for an exacerbation of your lower back pain after a fall. Your x-rays did not show any acute injury. Please return to the emergency department if you have any new or worsening symptoms or other concerns. Follow-up with your orthopedist and pain specialist. Discharge Date/Time: 10/28/20 00:41
[2020-10-28 00:31] VITALS: BP 132/61
--- NOTE | 2020-10-28 10:33 | XRAY Report ---
PROCEDURE: Hip w/Pelvis 2-3V RT INDICATIONS: glf TECHNIQUE: AP pelvis with lateral view(s) of the right hip(s). COMPARISON: None. FINDINGS: Bones: No fractures or dislocations. Pelvic ring appears intact. No suspicious bony lesions. Soft tissues: The visualized bowel gas pattern is normal. No suspicious soft tissue calcifications. IMPRESSION: No visualized acute fracture or dislocation. However, occult injury cannot be excluded. Recommend short interval imaging follow-up in 7-10 days as clinically indicated for additional evalua tion. The above findings are concordant with preliminary report. Reviewed by: Lucía Mckeon MD on 10/28/2020 10:32 AM PDT Approved by: Lucía Mckeon MD on 10/28/2020 10:32 AM PDT Station ID: [id number]
--- NOTE | 2020-10-28 10:34 | XRAY Report ---
PROCEDURE: Lumbar Spine 2 View INDICATIONS: lumbar pain s/p GLF TECHNIQUE: 2 views of the lumbar spine were acquired. COMPARISON: None. FINDINGS: Bones: 5 wny-nja-kbqlaul vertebrae are present. There is normal bony alignment. Mild to moderate di sc and foraminal narrowing are noted at L5-S1. Disc space narrowing is noted at multiple levels of th e lumbar spine. No vertebral body compression fractures. No suspicious bony lesions. Soft tissues: Overlying bowel gas pattern is normal. No suspicious soft tissue calcifications. IMPRESSION: No visualized acute fracture or dislocation. However, occult injury cannot be excluded. Recommend short interval imaging follow-up in 7-10 days as clinically indicated for additional evalua tion. The above findings are concordant with preliminary report. Reviewed by: Lucía Mckeon MD on 10/28/2020 10:33 AM PDT Approved by: Lucía Mckeon MD on 10/28/2020 10:33 AM PDT Station ID: [id number]
== END 2020-10-28 00:41 | disposition home or self-care (01) ==
LOC: ED 21:32
DX: M54.5 Low back pain (principal); G89.29 Other chronic pain
CPT/HCPCS: 72100; 73502; 96372; 99282; 99284; A9270

== ENCOUNTER 2022-01-18 08:00 | Outpatient (CLI) | payer OTHER ==
--- NOTE | 2022-01-19 23:32 | XRAY Report ---
PROCEDURE: Hips 2V BILAT INDICATIONS: BILATERAL HIP PX AFTER A FALL TECHNIQUE: 3 views of the hip were acquired. COMPARISON: None FINDINGS: Bones: No fractures or dislocations. No suspicious bony lesions. The visualized pelvic ring appear s intact. Mild symmetric axial hip joint space narrowing with mild periarticular osteophyte formatio n. Soft tissues: No suspicious soft tissue calcifications or masses. IMPRESSION: 1. No fracture or dislocation. If pain persist with conservative management, consider cross-sectional imaging such as CT or MRI. Reviewed by: RANDY Shen on 01/19/2022 11:38 PM PDT Approved by: Lucía Mckeno MD on 01/19/2022 11:38 PM PDT Station ID: [id number]
== END 2022-01-18 23:59 | disposition home or self-care (01) ==
LOC: DI.N 08:00
PROVIDERS: ATTEND Registered Nurse
DX: M25.552 Pain in left hip (principal); M25.551 Pain in right hip

== ENCOUNTER 2022-02-06 08:39 | Outpatient (CLI) | payer OTHER ==
--- NOTE | 2022-02-06 09:58 | MRI Report ---
PROCEDURE: Lumbar Spine W/O INDICATIONS: BACK PAIN TECHNIQUE: Noncontrast sagittal T1 spin echo and T2 fast echo, sagittal STIR, axial T1 and T2 fast spin echo thr ough the lumbar spine. In cases with scoliosis, additional coronal T2 fast spin echo may be performe d. COMPARISON: Correlation is made with prior lumbar radiographs, 10/27/2020 FINDINGS: Image quality: Excellent. Alignment and Curvature: There is normal bony alignment. Bone Marrow: Marrow is of normal overall signal. No acute vertebral body compression fractures. Spinal Cord: Conus medullaris terminates at the L1 level. Visualized cord demonstrates normal signa l and size. Paraspinous Soft Tissues: No paravertebral masses. A left-sided extrarenal pelvis can be seen. T12-L1: Normal in appearance. L1-L2: Normal in appearance. L2-L3: Normal in appearance. L3-L4: Normal in appearance. L4-L5: The disc height and disc signal are relatively well-preserved. Mild disc bulge is seen. Mi nimal facet hypertrophy is seen. There is at least moderate bilateral neuroforaminal narrowing seen. No significant central canal narrowing is seen. L5-S1: The disc height is well-preserved. There is loss of disc signal seen. Mild disc bulge is se en. A superimposed central disc protrusion is seen. Note is made of an annular fissure posteriorly. Mild facet hypertrophy is seen. There is moderate left-sided and bqtw-dq-erbdceya right-sided cat roforaminal narrowing. Mild central canal narrowing is seen. IMPRESSION: Focal lower lumbar spine degenerative changes are seen, including at least moderate bila teral neuroforaminal narrowing at L4-L5. There is an annular fissure posteriorly at L5-S1. Reviewed by: Eusebio Maya MD on 02/06/2022 8:57 AM FABIO Approved by: Eusebio Maya MD on 02/06/2022 8:57 AM FABIO Station ID: [id number]
== END 2022-02-06 08:40 | disposition home or self-care (01) ==
LOC: DI 08:39
PROVIDERS: ATTEND Internal Medicine
DX: M51.36 Other intervertebral disc degeneration, lumbar region (principal); M48.061 Spinal stenosis, lumbar region without neurogenic claudication; M51.37 Other intervertebral disc degeneration, lumbosacral region; M48.07 Spinal stenosis, lumbosacral region; M47.816 Spondylosis without myelopathy or radiculopathy, lumbar region; M47.817 Spondylosis without myelopathy or radiculopathy, lumbosacral region

== ENCOUNTER 2022-02-14 16:24 | Outpatient (CLI) | payer OTHER ==
[2022-02-14 17:17] LABS: URIC ACID 3.7 mg/dL (2.6-7.2)
[2022-02-14 17:20] LABS: CRP - C-REACTIVE PROTEIN < 1.0 mg/dL (0-1.0)
[2022-02-14 17:36] LABS: RHEUMATOID FACTOR NEGATIVE (Negative)
== END 2022-02-14 16:25 | disposition home or self-care (01) ==
LOC: LAB 16:24
PROVIDERS: ATTEND Internal Medicine
DX: M25.50 Pain in unspecified joint (principal); M25.559 Pain in unspecified hip; M19.90 Unspecified osteoarthritis, unspecified site
CPT/HCPCS: 36415; 84550; 85651; 86140; 86200; 86430

== ENCOUNTER 2022-06-22 10:06 | Outpatient (CLI) | payer OTHER ==
[2022-06-22 10:22] LABS: BASOPHILS # (AUTO) 0.1 10^3/uL (0.0-0.1); BASOPHILS % (AUTO) 1.6 %; EOSINOPHILS # (AUTO) 0.1 10^3/uL (0.0-0.7); HCT - HEMATOCRIT 43.1 % (37.0-47.0); HGB - HEMOGLOBIN 13.7 g/dL (12.0-16.0); LYMPHOCYTES # (AUTO) 1.2 10^3/uL (1.5-3.5); LYMPHOCYTES % (AUTO) 21.2 %; MEAN CORPUSCULAR HEMOGLOBIN 29.7 pg (27.0-31.0); MEAN CORPUSCULAR HGB CONC 31.8 g/dL (32.0-36.0); MEAN CORPUSCULAR VOLUME 93.5 fL (81.0-99.0); MEAN PLATELET VOLUME 8.7 fL (7.9-10.8); MONOCYTES # (AUTO) 0.4 10^3/uL (0.0-1.0); MONOCYTES % (AUTO) 7.3 %; NEUTROPHILS # (AUTO) 3.7 10^3/uL (1.5-6.6); NEUTROPHILS % (AUTO) 67.7 %; PLT - PLATELET COUNT 328 10^3/uL (130-450); RED BLOOD COUNT 4.61 10^6/uL (4.20-5.40); RED CELL DISTRIBUTION WIDTH 11.5 % (12.0-15.0); WHITE BLOOD COUNT 5.5 x10^3/uL (4.8-10.8)
[2022-06-22 11:07] LABS: ALBUMIN 4.8 g/dL (3.2-5.5); ALBUMIN/GLOBULIN RATIO 1.7 (1.0-2.2); ALKALINE PHOSPHATASE 40 IU/L (42-121); ALT ALANINE AMINOTRANSFERASE 14 IU/L (10-60); AST ASPARTATE AMINOTRANSFERASE 17 IU/L (10-42); BILIRUBIN,TOTAL 1.3 mg/dL (0.2-1.0); BUN - BLOOD UREA NITROGEN 16 mg/dL (6-20); CARBON DIOXIDE - CO2 28 mmol/L (21-32); CHLORIDE 100 mmol/L (101-111); CHOL/HDL RATIO 2.7 (<4.4); CHOLESTEROL 270 mg/dL; CREATININE 0.7 mg/dL (0.4-1.0); GFR - MDRD 88 (>89); GLUCOSE 104 mg/dL (70-100); HDL CHOLESTEROL 101 mg/dL; LDL CHOLESTEROL,CALCULATED 158 mg/dL; LDL/HDL RATIO 1.6 (<4.4); POTASSIUM 4.3 mmol/L (3.5-5.0); SODIUM 139 mmol/L (135-145); TOTAL PROTEIN 7.6 g/dL (6.7-8.2); TRIGLYCERIDES 56 mg/dL; VLDL CHOLESTEROL 11 mg/dL
[2022-06-22 13:05] LABS: ESTIMATED AVERAGE GLUCOSE 103 mg/dL (70-100); HEMOGLOBIN A1c% 5.2 % (4.27-6.07)
[2022-06-23 07:10] LABS: IMMUNOGLOBULIN A (IGA) 137 mg/dL (87-352); IMMUNOGLOBULIN G (IGG) 658 mg/dL (586-1602); IMMUNOGLOBULIN M (IGM) 13 mg/dL (26-217)
== END 2022-06-22 10:07 | disposition home or self-care (01) ==
LOC: LAB 10:06
PROVIDERS: ATTEND Physical Medicine & Rehabilitation
DX: Z00.00 Encounter for general adult medical examination without abnormal findings (principal); G35 Multiple sclerosis; F41.1 Generalized anxiety disorder; Z79.899 Other long term (current) drug therapy; D64.9 Anemia, unspecified; M46.96 Unspecified inflammatory spondylopathy, lumbar region; M54.12 Radiculopathy, cervical region; R19.4 Change in bowel habit; R19.7 Diarrhea, unspecified; R73.01 Impaired fasting glucose; R20.0 Anesthesia of skin
CPT/HCPCS: 36415; 80053; 80061; 82784; 83036; 83721; 84443; 85025

== ENCOUNTER 2022-07-06 15:34 | Outpatient (CLI) | payer OTHER ==
--- NOTE | 2022-07-07 08:53 | MRI Report ---
PROCEDURE: CERVICAL SPINE WO INDICATIONS: CERVICAL RADICULOPATHY TECHNIQUE: Noncontrast sagittal T1 spin echo and T2 fast spin echo, sagittal STIR, foraminal oblique sagittal T2 fast spin echo, and axial gradient echo or T2 fast spin echo through the cervical spine. COMPARISON: None. FINDINGS: Image quality: Excellent. Alignment and Curvature: There is normal bony alignment. Bone Marrow: Marrow demonstrates normal overall signal. C3-C4 coalition is present. There is mild r eactive signal throughout the endplates of the cervical and upper thoracic spine. Spinal Cord: Visualized spinal cord has normal size. There is a severe degree of multifocal patchy S TIR signal elevation throughout the cervical and upper thoracic cord, as well as the medulla and visu alized portions of the inferior palak. Largest lesions are located at the C2 level posteriorly and reji trally measuring 14 mm craniocaudal, at the C3 level measuring roughly 13 mm craniocaudal, and at the C5-C6 level, measuring roughly 33 mm craniocaudal. No cerebellar tonsillar herniation. Paraspinous Soft Tissues: No paravertebral masses. Prevertebral soft tissues are normal in thicknes s. C2-C3: Normal in appearance. C3-C4: Mild facet and uncovertebral hypertrophy bilaterally. No significant canal stenosis. Mild bi lateral foraminal stenosis. C4-C5: Mild disc desiccation and diffuse disc bulge. Mild facet and uncovertebral hypertrophy bilate rally. Mild canal stenosis. Moderate bilateral foraminal stenosis. C5-C6: Mild disc desiccation and diffuse disc bulge. Mild facet and uncovertebral hypertrophy bilate rally. Mild canal stenosis. Mild bilateral foraminal stenosis. C6-C7: Mild disc desiccation and diffuse disc bulge. Mild facet and uncovertebral hypertrophy bilate rally. Mild canal stenosis. Moderate bilateral foraminal stenosis. C7-T1: Mild disc desiccation. Mild facet and uncovertebral hypertrophy bilaterally. No significant c anal stenosis. Mild bilateral foraminal stenosis. IMPRESSION: 1. Severe degree of white matter disease involving the cervicothoracic cord as well as the medulla an d palak as described above. Findings are suggestive of multiple sclerosis in the appropriate clinical setting. 2. Multilevel degenerative disc and facet disease, as well as uncovertebral hypertrophy, causing mult ilevel canal and foraminal stenoses as described above. No evidence of neural impingement. Reviewed by: Elliot Ochoa MD on 07/07/2022 8:51 AM PST Approved by: Elliot Ochoa MD on 07/07/2022 8:51 AM PST Station ID: [id number]
== END 2022-07-06 15:35 | disposition home or self-care (01) ==
LOC: DI 15:34
PROVIDERS: ATTEND Internal Medicine
DX: M47.812 Spondylosis without myelopathy or radiculopathy, cervical region (principal); M50.31 Other cervical disc degeneration, high cervical region; M48.02 Spinal stenosis, cervical region; R90.82 White matter disease, unspecified

== ENCOUNTER 2022-09-28 11:23 | Outpatient (CLI) | payer OTHER ==
--- NOTE | 2022-09-28 13:37 | XRAY Report ---
PROCEDURE: Hip w/Pelvis 2-3V RT INDICATIONS: RT HIP PX TECHNIQUE: AP pelvis with lateral view(s) of the right hip(s). COMPARISON: None. FINDINGS: Bones: No fractures or dislocations. No suspicious bony lesions. Mild right hip joint osteoarthri tic changes are seen with joint space narrowing and subchondral sclerosis. No evidence of avascular n ecrosis of femoral head. Soft tissues: No suspicious soft tissue calcifications or masses. IMPRESSION: Mild the right hip joint osteoarthritis. No acute pelvic or hip fracture. No evidence of avascular ne crosis. Reviewed by: Edi Lubin MD on 09/28/2022 12:36 PM AKDT Approved by: Edi Lubin MD on 09/28/2022 12:36 PM AKDT Station ID: [id number]
== END 2022-09-28 11:24 | disposition home or self-care (01) ==
LOC: DI 11:23
PROVIDERS: ATTEND Internal Medicine
DX: M16.11 Unilateral primary osteoarthritis, right hip (principal)

== ENCOUNTER 2022-10-18 09:37 | Day surgery (SDC) | payer OTHER ==
[2022-10-18] MEDS ORDERED: LACTATED RINGERS 1,000 ML IV ONE (10:03)
[2022-10-18] MEDS ORDERED: LIDOCAINE-MPF 2% 5 ML VIAL ONE (12:18)
[2022-10-18] MEDS ORDERED: PROPOFOL 500 MG/50 ML 500 MG/50 ML VIAL ONE (12:18)
--- NOTE | 2022-10-18 12:27 | ANESTHESIA ---
Pre-Anesthesia VS, & Labs - Diagnosis GERD, Screening - Procedure EGD, Colonoscopy Vital Signs: Temp Pulse Resp BP Pulse Ox O2 Flow Rate 36.7 C 89 16 123/68 100 0 10/18/22 10:03 10/18/22 10:03 10/18/22 10:03 10/18/22 10:03 10/18/22 10:03 10/18/22 10:03 Height: 5 ft 4 in Weight (kg): 57 kg Body Mass Index: 21.5 BMI Classification: Normal - NPO Other (prep as directed) - Is Patient ?: No Home Medications and Allergies Estradiol [Estrace] 0.5 mg PO DAILY 10/27/20 Dalfampridine [Dalfampridine ER] 10 mg PO BID 12/01/21 Naltrexone HCl 2.5 mg PO DAILY 12/01/21 medroxyPROGESTERone [Provera] 2.5 mg PO DAILY 12/01/21 Allergies/Adverse Reactions: Allergies Allergy/AdvReac Type Severity Reaction Status Date / Time No Known Drug Allergies Allergy Verified 10/18/22 10:10 Anes History & Medical History - Anesthetic History Anesthesia Complications: reports: No previous complications - Medical History Cardiovascular: reports: None Pulmonary: reports: Other Urinary: reports: None Neuro: reports: Multiple sclerosis Musculoskeletal: reports: Osteoarthritis, Chronic back pain Endocrine/Autoimmune: reports: None Skin: reports: None Smoking Status: Never smoker - Surgical History Orthopedic: reports: Spine surgery, Other Exam General: Alert, Oriented x3 Dental: WNL Mouth Opening: Greater than 4 Fingerbreadths Neck Mobility: Normal Mallampati classification: I Thyromental Distance: greater than 6 cm Respiratory: Lungs clear Cardiovascular: Regular rate Plan Anesthesia Type: Total IV Consent for Procedure(s) Verified and Reviewed: Yes Code Status: Attempt Resuscitation ASA classification: 3-Severe systemic disease Is this case an emergency?: No
[2022-10-18] MEDS ORDERED: LACTATED RINGERS 250 ML IV ONE (13:38)
--- NOTE | 2022-10-18 14:15 | ANESTHESIA POST OP EVALUATION ---
Anesthesia Post Eval - Post Anesthesia Eval Vitals: Last Vital Signs Temp 36.8 C 10/18/22 13:38 Pulse 72 10/18/22 13:51 Resp 16 10/18/22 13:51 BP 124/72 10/18/22 13:51 Pulse Ox 100 10/18/22 13:51 O2 Flow Rate 0 10/18/22 10:03 CV Function Including HR & BP: Stable Pain Control: Satisfactory Nausea & Vomiting: Negative Mental Status: Baseline Respiratory Status: Airway Patent Hydration Status: Satisfactory Anesthesia Complications: None
[2022-10-18 14:21] VITALS: BP 119/65
--- NOTE | 2022-10-18 15:55 | CT Report ---
PROCEDURE: ABDOMEN/PELVIS WO INDICATIONS: Incomplete Colonoscopy TECHNIQUE: A CT scan of the abdomen and pelvis was performed without the use of intravenous contrast. Images we re recorded and evaluated at appropriate window settings. Reformats: coronal and sagittal. For radiat ion dose reduction, the following was used: automated exposure control, adjustment of mA and/or kV ac cording to patient size. COMPARISON: None. FINDINGS: Image quality: Excellent. Lung bases and heart: Unremarkable. Liver: No solid mass. Fluid attenuating cyst in segment 7. Gallbladder and biliary tree: Gallbladder sludge versus small stones. No wall thickening. No biliary dilation. Spleen: No splenomegaly. Pancreas: No pancreatic ductal dilation. Adrenals: No adrenal nodule. Kidneys and ureters: No hydronephrosis. No renal cystic lesion which requires follow up. No solid mas s. Bowel and peritoneum: There is distention of the large bowel and terminal ileum with intraluminal con trast. No filling defect within the opacified bowel. Lymph nodes: No central or retroperitoneal adenopathy. Vessels: No infrarenal aortic aneurysm. PELVIS Reproductive organs: Unremarkable. Bladder: No wall thickness, accounting for underdistention. Pelvic lymph nodes: No pelvic adenopathy by size criteria. Bones: No aggressive osseous abnormality. Other: No significant ventral or inguinal hernia. IMPRESSION: No intraluminal bowel mass identified. Reviewed by: Truman Gilmore on 10/18/2022 3:53 PM PDT Approved by: Truman Gilmore on 10/18/2022 3:53 PM PDT Station ID: [id number]
== END 2022-10-18 09:38 | disposition home or self-care (01) ==
LOC: SDS 09:37
PROVIDERS: ATTEND Surgery
PROC: 0DJ08ZZ Inspection of Upper Intestinal Tract, Via Natural or Artificial Opening Endoscopic (ICD-10-PCS; principal; 2022-10-18 10:45)
PROC: 0DJD8ZZ Inspection of Lower Intestinal Tract, Via Natural or Artificial Opening Endoscopic (ICD-10-PCS; 2022-10-18 10:45)
DX: R10.13 Epigastric pain (principal); K56.699 Other intestinal obstruction unspecified as to partial versus complete obstruction; K21.9 Gastro-esophageal reflux disease without esophagitis; K29.50 Unspecified chronic gastritis without bleeding; G35 Multiple sclerosis; R63.4 Abnormal weight loss; Z87.891 Personal history of nicotine dependence; R19.4 Change in bowel habit; K64.8 Other hemorrhoids; Z91.81 History of falling
CPT/HCPCS: 43235; 45330; 74176; J7120

== ENCOUNTER 2023-05-30 15:03 | Emergency (ER) | payer OTHER ==
[2023-05-30 15:22] VITALS: O2SAT 100
--- NOTE | 2023-05-30 17:53 | ED Physician Documentation ---
PD HPI Fall - Stated complaint Stated Complaint: PELVIS PX - Chief complaint Chief Complaint: Back Pain - History obtained from History obtained from: Patient - Additional information Additional information: 52-year-old female presents emergency department after experiencing a fall from bed 5 to 7 days ago. Patient reports that she has MS she took a muscle relaxer and thinks she may have gotten slightly dizzy while she was getting out of bed and fell onto her back. Since then she has been sleeping up in a chair she is been alternating between Tylenol and ibuprofen for pain but she has been trying to cut back on Tylenol and ibuprofen when she does she notices severe worsening pain to her coccyx region. She has had no urinary or stool incontinence or urgency. She denied her head no loss of consciousness she is not any blood thinners. Patient is worried that she may have a coccyx fracture that is being missed and is here because she is wanting imaging. PD PAST MEDICAL HISTORY - Past Medical History Past Medical History: Yes Cardiovascular: None Respiratory: Other Neuro: Multiple sclerosis Endocrine/Autoimmune: None : None Psych: Anxiety Musculoskeletal: Osteoarthritis, Chronic back pain Derm: None - Past Surgical History Past Surgical History: No Ortho: Spine surgery, Other - Present Medications Home Medications: Ambulatory Orders Medication Instructions Recorded Confirmed Estradiol [Estrace] 0.5 mg PO DAILY 10/27/20 10/17/22 Dalfampridine [Dalfampridine ER] 10 mg PO BID 12/01/21 10/17/22 Naltrexone HCl 2.5 mg PO DAILY 12/01/21 10/17/22 medroxyPROGESTERone [Provera] 2.5 mg PO DAILY 12/01/21 10/17/22 - Allergies Allergies/Adverse Reactions: Allergies Allergy/AdvReac Type Severity Reaction Status Date / Time No Known Drug Allergies Allergy Verified 05/30/23 15:18 - Social History Does the pt smoke?: No Smoking Status: Never smoker Does the pt drink ETOH?: No Does the pt have substance abuse?: No - Immunizations Immunizations are current?: Yes - POLST Patient has POLST: No PD ED PE NORMAL - Vitals Vital signs reviewed: Yes - General General: Alert and oriented X 3, No acute distress, Well developed/nourished - HEENT HEENT: Atraumatic - Neck Neck: Supple, no meningeal sign, No bony TTP - Back Back: No CVA TTP, No spinal TTP (Coccyx tenderness) - Derm Derm: Normal color, Other (no bruising) - Extremities Extremities: No deformity, No tenderness to palpate, No edema - Psych Psych: Normal mood Results - Vitals Vitals: Vital Signs - 24 hr 05/30/23 05/30/23 15:15 20:02 Temperature 36.0 C L Heart Rate 105 H Respiratory 20 Rate Blood Pressure 140/87 H 115/72 O2 Saturation 100 Oxygen O2 Source Room air - Rads (name of study) coccyx/sacrum, plevis Xray Relevant Findings:: Final report received, EMP independent interpretation of test (No obvious fractures or other acute findings.) PD Medical Decision Making - ED course ED course: 52-year-old female presents emergency department for coccyx/sacrum/pelvis pain. Unfortunately we do not have CT scan here in the emergency department at this time. We did plain films of sacrum/coccyx, pelvis and there were no acute fractures or other abnormalities at this time. Patient was offered a CT scan but it would need to have an outside facility [facility] patient said that she did not want to be transferred at this time for the scan and so that she can follow-up with her primary care provider come back to the emergency department if she is unable to tolerate the pain at home. I am prescribing a short course of short-acting opioid pain medication for this patient. I have reviewed the patients BRIGADIER and no concerning findings were noted. I have discussed that the opioids are for short term therapy only, and will not be refilled from the ED. Departure - Departure Disposition: 01 Home, Self Care Clinical Impression: Coccyx pain, Ground-level fall Back pain Qualifiers: Back pain location: low back pain Chronicity: unspecified Back pain laterality: midline Sciatica presence: without sciatica Qualified Code(s): M54.50 - Low back pain, unspecified Condition: Good Instructions: ED Low Back Pain Injury, ANTI-INFLAMMATORY, General Comments: Thank you for trusting us with your care we have completed x-rays of your lower back as well as her coccyx and we do not see any obvious fractures. As we discussed a CT scan is more sensitive but you wanted to hold off transferring to an outside facility to have this completed as her CT scan is currently down. Please follow-up with your primary care provider if your pain continues to get worse for possible outpatient CT scan or come back to the emergency department if you are having severe worsening lower back pain. I am prescribing a short course of narcotic pain medication for you. These are potentially dangerous and addictive medications that should be used carefully. These medications may constipate you. Take an pukw-lzm-ydcrset stool softener (docusate) twice daily with plenty of water while taking these medications. If you go 24 hours without a bowel movement, take eswp-ymj-vwthntt miralax, per package instructions. Do not drink or drive while taking these medications. If you received narcotic or sedating medications while in the emergency department, do not drive for 24 hours. Store this medication in a safe, secure place and out of reach of children. It is a violation of federal law to give or sell this medication to another person or to use in a manner other than prescribed. The ED will not refill narcotic prescriptions, including prescriptions lost or stolen. To dispose of unwanted medications: 1. The [facility] at [address] in [place] has a medication drop box. They accept prescription medications (in pill form) Sunday through Sunday 9:00 a.m. to 5:00 p.m. 2. [facility], [place] [employer] accepts prescription medications (in pill form only) for disposal year round. Call for more information. 3. Contact the [facility] for the next [facility] sponsored prescription drug collection event. , x0680, or x3607; Note that many narcotic pain relievers also contain Tylenol/acetaminophen. Please ensure that your total dose of acetaminophen from all sources does not exceed 3 g (3000 mg) per day. Discharge Date/Time: 05/30/23 20:02
[2023-05-30] MEDS ORDERED: ACETAMINOPHEN 325 MG TABLET PO STA (18:32)
--- NOTE | 2023-05-30 19:22 | XRAY Report ---
PROCEDURE: Hip w/Pelvis 2-3V LT INDICATIONS: lumbar pain after GLF TECHNIQUE: 2 views of the hip were acquired. COMPARISON: None. FINDINGS: Bones: Mild bilateral hip arthrosis. No displaced fracture or dislocation. Lumbosacral degenerative changes partially seen. Soft tissues: No suspicious calcifications. IMPRESSION: No acute radiographic abnormality. If there is high concern for occult injury, consider repeat radiog eugene or cross-sectional imaging. Reviewed by: Pierre Carrillo MD on 05/30/2023 7:21 PM PST Approved by: Pierre aCrrillo MD on 05/30/2023 7:21 PM PST Station ID: [id number]
--- NOTE | 2023-05-30 19:24 | XRAY Report ---
PROCEDURE: Sacrum/Coccyx INDICATIONS: Sacral/coccyx pain after GLF TECHNIQUE: 2 views of the sacrum and coccyx acquired. COMPARISON: None. FINDINGS: Bones: Mild bilateral hip arthrosis. No displaced fracture or dislocation. Degenerative changes are s een of the sacroiliac joints. The sacrum and coccyx are obscured by bowel gas on frontal view. No gross malalignment on lateral vie w. Soft tissues: No suspicious calcifications. There is moderate fecal loading. IMPRESSION: Mild bilateral hip arthrosis. Sacroiliac degenerative changes. No gross malalignment of the sacrum or coccyx on lateral view. Frontal view is obscured by bowel gas. No acute radiographic abnormality. If there is high concern for occult injury, consider repeat radiography or cross-sectional imaging. Reviewed by: Pierre Carrillo MD on 05/30/2023 7:23 PM PST Approved by: Pierre Carrillo MD on 05/30/2023 7:23 PM PST Station ID: [id number]
[2023-05-30] MEDS ORDERED: oxyCODONE/ACET 5/325 Prepack 4 PO STA (19:41)
[2023-05-30 20:09] VITALS: BP 115/72
== END 2023-05-30 20:02 | disposition home or self-care (01) ==
LOC: ED 15:03
DX: S39.92XA Unspecified injury of lower back, initial encounter (principal); W06.XXXA Fall from bed, initial encounter
CPT/HCPCS: 72220; 73502; 99283; A9270

== ENCOUNTER 2023-06-19 13:41 | Outpatient (CLI) | payer OTHER ==
--- NOTE | 2023-06-19 16:22 | CT Report ---
PROCEDURE: Lumbar Spine WO INDICATIONS: LOW BACK PAIN TECHNIQUE: Noncontrast 3 mm thick sections acquired from the T12 level to the sacrum. Sagittal and coronal refo rmats were constructed. For radiation dose reduction, the following was used: automated exposure co ntrol, adjustment of mA and/or kV according to patient size. COMPARISON: Lumbar spine MRI dated 02/06/2022. FINDINGS: Image quality: Excellent. Bones: There is normal bony alignment. No acute vertebral body compression fractures. No suspiciou s lytic or blastic bony lesions. Central spinal caliber is of normal overall caliber. No pars defec ts. T12-L1: No canal stenosis or significant foraminal stenosis. L1-L2: No canal stenosis or significant foraminal stenosis. L2-L3: No canal stenosis or significant foraminal stenosis. L3-L4: Minimal disc bulge. No canal stenosis. Mild to moderate bilateral foraminal stenosis. L4-L5: Disc bulge. No canal stenosis. Mild facet hypertrophy. Moderate bilateral foraminal narrowing. No significant interval change. L5-S1: Interval development of disc height loss. Disc bulge. Mild facet hypertrophy. No canal stenosi s or significant foraminal stenosis. Soft tissues: No retroperitoneal masses or hematomas. Visualized aorta is normal in caliber. IMPRESSION: 1. Mild lumbar facet arthropathy. 2. No canal stenosis. 3. Moderate bilateral foraminal stenosis at L4-L5, as before. Reviewed by: Jimmy Banerjee MD on 06/19/2023 4:20 PM PST Approved by: Jimmy Banerjee MD on 06/19/2023 4:20 PM PST Station ID: [id number]
--- NOTE | 2023-06-19 21:04 | CT Report ---
PROCEDURE: Pelvis WO INDICATIONS: BONY PELVIS PAIN TECHNIQUE: Noncontrast 3 mm axial sections acquired through the bony pelvis, with coronal and sagittal reformatt ing. For radiation dose reduction, the following was used: automated exposure control, adjustment of mA and/or kV according to patient size. COMPARISON: None. FINDINGS: Image quality: Excellent. Bones: Pelvic ring is intact. Osteoarthritic changes are noted in bilateral sacroiliac joints and sy mphysis pubis with joint space narrowing and subchondral sclerosis. No ankylosis or erosion is seen. Mild bilateral hip joint osteoarthritic changes are seen. No evidence of avascular necrosis of femora l head. No sacral insufficiency fracture. No displaced coccygeal fracture. No suspicious bony lesions . Soft tissues: There is no soft tissue mass or drainable fluid collection. No abnormal intramuscular density. No significant hip joint effusion. No pelvic free fluid of free air. Bladder wall thickness is normal. Bowel wall thickness is normal. No pelvic lymphadenopathy. No abnormal soft tissue calcifi cations. IMPRESSION: 1. No pelvic fracture or dislocation. Mild osteoarthritic changes throughout bony pelvis. No evidence of avascular necrosis of femoral head. No sacral or coccygeal fracture. 2. No gross pelvic soft tissue abnormalities. No pelvic free fluid of free air. Reviewed by: Edi Lubin MD on 06/19/2023 9:03 PM PST Approved by: Eid Lubin MD on 06/19/2023 9:03 PM PST Station ID: [id number]
== END 2023-06-19 13:42 | disposition home or self-care (01) ==
LOC: DI 13:41
PROVIDERS: ATTEND Internal Medicine
DX: M19.09 Primary osteoarthritis, other specified site (principal); M47.816 Spondylosis without myelopathy or radiculopathy, lumbar region

== ENCOUNTER 2023-07-26 10:42 | Outpatient (CLI) | payer OTHER ==
--- NOTE | 2023-07-26 15:40 | DEXA Report ---
PROCEDURE: Dexa Spine and/or Hip INDICATIONS: SCREENING FOR OSTEOPOROSIS, MS TECHNIQUE: Dual energy x-ray absorptiometry (DXA) was performed on a [employer] System. Regions measur ed are the AP Spine, femoral neck, and if needed forearm. COMPARISON: None FINDINGS: Lumbar Spine: Bone Mineral Density: 0.914 g/cm/cm,T score: -2.2. Left Femoral Neck: Bone Mineral Density: 0.711 g/cm/cm, T score: -2.4. Left Hip: Bone Mineral Density: 0.694 g/cm/cm,T score: -2.5. (T score greater or equal to -1.0: NORMAL) (T score from -1.1 to -2.4: OSTEOPENIA) (T score less than or equal to -2.5 to: OSTEOPOROSIS) Impression: By WHO criteria, this patient has osteoporosis. Patients with diagnosis of osteoporosis or osteopenia should have regular bone mineral density assess ment. For those eligible for Medicare, routine testing is allowed once every 2 years. Testing frequ ency can be increased for patients who have rapidly progressing disease or for those who are receivin g medical therapy to restore bone mass. Reviewed by: Fidelina Hernandez MD on 07/26/2023 3:39 PM PDT Approved by: Fidelina Hernandez MD on 07/26/2023 3:39 PM PDT Station ID: [id number]
== END 2023-07-26 10:43 | disposition home or self-care (01) ==
LOC: DI 10:42
PROVIDERS: ATTEND Physical Medicine & Rehabilitation
DX: Z13.820 Encounter for screening for osteoporosis (principal); G35 Multiple sclerosis; M81.0 Age-related osteoporosis without current pathological fracture